=== PATIENT | female | born 1985 | race Caucasian/White ===

== ENCOUNTER 2016-11-14 20:48 | Emergency (ER) | payer OTHER ==
--- NOTE | 2016-11-14 22:57 | EDDOCDS ---
Nurse's Notes [facility] Name: Capri Lei Age: 31 yrs Sex: Female : 1985 Arrival Date: 11/14/2016 Time: 20:48 Bed PD Private MD: NO PRIMARY PHYSICIAN, . Diagnosis: Acute upper respiratory infection, unspecified Presentation: 11/14 20:52 Presenting complaint: Patient states: body ache, fever since Tuesday. Took over the rs3 counter med Tamiflu. symptoms not resolved. Adult Sepsis Screening: The patient does not have new or worsening altered mentation. Patient's respiratory rate is less than 22. Systolic blood pressure is greater than 100. Patient has a qSOFA score of 0- Negative Sepsis Screen. Suicide/Homicide risk assessment- the patient denies having any suicidal and/or homicidal ideations and does not present with any other emotional, behavioral or mental health complaints. Status: The patient is a dependent. Transition of care: patient was not received from another setting of care. 20:52 Acuity: DAVID Level 4 rs3 20:52 Method Of Arrival: Walkin/Carried/Asstd rs3 Triage Assessment: 20:54 General: Appears in no apparent distress. Pain: Denies pain. Pt Declines HIV testing. 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 none - PMHx: none; - PSHx: none; - Social history: Smoking status: Patient uses tobacco products, light tobacco smoker. No barriers to communication noted, The patient speaks fluent Divehi. - Family history: Not pertinent. - : The pt / caregiver states he / she is not on anticoagulants. Home medication list is obtained from the patient. - Exposure Risk Screening:: None identified. Screenin:53 Screening information is obtained from the patient. Fall risk: No risks identified. kmg1 Assistance ADL's: requires no assistance with activities of daily living. Abuse/DV Screen: The patient / caregiver reports he/she is: not in a situation that causes fear, pain or injury. Nutritional screening: No deficits noted. Advance Directives: There is no active DNR order. home support is adequate. Assessment: 22:53 General: Appears in no apparent distress, comfortable, Behavior is appropriate for age, kmg1 cooperative, pleasant. Respiratory: Airway is patent Respiratory effort is even, unlabored, Respiratory pattern is regular, symmetrical. Vital Signs: 20:49 BP 132 / 82; Pulse 89; Resp 18; Temp 98.9; Pulse Ox 100% ; Weight 66.22 kg; Height 5 elp ft. 3 in. (160.02 cm); Pain 5/10; 22:47 BP 123 / 87; Pulse 118; Resp 18; Temp 99.9(TE); Pulse Ox 98% on R/A; Pain 0/10; rn1 20:49 Body Mass Index 25.86 (66.22 kg, 160.02 cm) elp Vitals: 20:49 Log In Time: November 14, 2016 at 20:47. elp 22:24 Strep Screen is obtained and tested: Negative, a GATSNEG culture is ordered in [facility] ms18 and sent. ED Course: 20:49 Patient visited by Flori Rico PCA. elp 20:49 NO PRIMARY PHYSICIAN, . is Private Physician. elp 20:49 Patient moved to Waiting elp 20:50 Patient visited by Folri Rico PCA. elp 20:50 Patient moved to Pre RCE elp 20:54 Triage Initiated rs3 21:52 Patient moved to Triage 2 ms18 21:56 Cole Wylie RPA-C [facility]. ck7 21:56 Brett William DO is Attending Physician. ck7 21:56 Patient visited by Cole Wylie RPA-C. ck7 22:05 -Influenza A&B Rapid Antigen - Nose Sent. ms18 22:08 GATS (NEGATIVE STREP SCREEN) Sent. ms18 22:23 Patient moved to TR4 ms18 22:42 [facility] Payment Agreement was scanned into [employer] and attached to record. ks16 22:43 Patient moved to PD ms18 22:49 [facility] is Referral Physician. ck7 22:53 The patient / caregiver is instructed regarding the plan of care and ED course. kmg1 22:53 No IV's were initiated during this patient's visit. No procedures done that require km assistance. Order Results: Lab Order: -Influenza A&B Rapid Antigen - Nose; SPEC'M 11/14/16 22:01 Test: INFLUENZA A RAPID SCR by ICA; Value: INFLUENZA A RESULTS NEGATIVE; Status: F Test: INFLUENZA A RAPID SCR by ICA; Value: Comments:; Status: F Test: INFLUENZA B RAPID SCR by ICA; Value: INFLUENZA B RESULTS NEGATIVE; Status: F Test Note: ; The Influenza test is a direct rapid immunoassay for the qualitative detection of Influenza viral antigen. Cell culture (Viral Culture) testing should be considered to confirm NEGATIVE results and to assist in detecting other viruses that can provide similar clinical symptoms. Please contact the lab within 24 hours ([phone]) if confirmatory testing is desired. Outcome: 22:49 Discharge ordered by Provider. ck7 22:53 Discharge Assessment: Patient awake, alert and oriented x 3. No cognitive and/or kmg1 functional deficits noted. Patient verbalized understanding of disposition instructions. Patient awake and alert. patient administered narcotics - no. The following High Risk Discharge criteria are identified: None. Discharged to home ambulatory, with significant other. Condition: stable. Discharge instructions given to patient, Instructed on discharge instructions, follow up and referral plans. medication usage, Demonstrated understanding of instructions, medications, Pt was receptive of discharge instructions/ teaching. Prescriptions given X 1. No special radiology studies were completed. Property sent home with patient. 22:56 Patient left the ED. [facility] [place] Signatures: Bette Murphy, RN RN kmg1 Monet aPtelRN RN rs3 Cole Wylie, RPA-C RPA-Cck7 Flori Rico, IRVIN QC LAB TECHNICIAN Elizabeth Clay RN RN ms18 Leobardo, Sree rn1 Daxa Worthy, Reg Reg ks16 Corrections: (The following items were deleted from the chart) 20:54 20:52 Status: Patient is not a information services vice president or dependent. rs3 rs3 MTDD
--- NOTE | 2016-11-14 22:57 | EDDOCDS ---
Physician Documentation [facility] Name: Capri Lei Age: 31 yrs Sex: Female : 1985 Arrival Date: 11/14/2016 Time: 20:48 Bed PD Private MD: NO PRIMARY PHYSICIAN, . Disposition: 11/14/16 22:49 Discharged to Home/Self Care. Impression: Acute upper respiratory infection, unspecified. - Condition is Stable. - Discharge Instructions: Upper Respiratory Infection, Pediatric. - Prescriptions for Ibuprofen 600 mg Oral Tablet - take 1 tablet by ORAL route every 6 hours As needed take with food; 30 tablet. - Medication Reconciliation, Local Pharmacy Hours, Work Release Form - 2 day form. - [facility]: [facility]; When: 1 - 2 days; Reason: Recheck today's complaints, Continuance of care. - Problem is new. - Symptoms have improved. Historical: - Allergies: no known allergies; - Home Meds: 1. none - PMHx: none; - PSHx: none; - Social history: Smoking status: Patient uses tobacco products, light tobacco smoker. No barriers to communication noted, The patient speaks fluent Mohawk. - Family history: Not pertinent. - : The pt / caregiver states he / she is not on anticoagulants. Home medication list is obtained from the patient. - Exposure Risk Screening:: None identified. 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 3 in. (160.02 cm); Pain 5/10; 22:47 BP 123 / 87; Pulse 118; Resp 18; Temp 99.9(TE); Pulse Ox 98% on R/A; Pain 0/10; rn1 20:49 Body Mass Index 25.86 (66.22 kg, 160.02 cm) elp MDM: 21:56 Strep Screen, Nursing ordered. ck7 21:56 Obtain sample by nasopharyngeal swab ordered. ck7 21:57 -Influenza A&B Rapid Antigen - Nose Ordered. EDMS 22:06 GATS (NEGATIVE STREP SCREEN) Ordered. EDMS 22:27 Financial registration complete. ks16 22:42 [facility] Payment Agreement was scanned into [employer] and attached to record. ks16 22:45 -Influenza A&B Rapid Antigen - Nose Reviewed. ck7 Signatures: Dispatcher [employer] EDMS Bette Murphy, RN RN kmg1 Monet Patel RN RN rs3 Cole Wylie, RPA-C RPA-Cck7 Daxa Worthy, Reg Reg ks16 The chart was reviewed and I authenticate all verbal orders and agree with the evaluation and treatment provided.Attachments: 22:42 [facility] Payment Agreement ks16 MTDD
--- NOTE | 2016-11-16 23:56 | EDDOCDS ---
Nurse's Notes [facility] Name: Capri Lei Age: 31 yrs Sex: Female : 1985 Arrival Date: 11/14/2016 Time: 20:48 Bed PD Private MD: NO PRIMARY PHYSICIAN, . Diagnosis: Acute upper respiratory infection, unspecified Presentation: 11/14 20:52 Presenting complaint: Patient states: body ache, fever since Tuesday. Took over the rs3 counter med Tamiflu. symptoms not resolved. Adult Sepsis Screening: The patient does not have new or worsening altered mentation. Patient's respiratory rate is less than 22. Systolic blood pressure is greater than 100. Patient has a qSOFA score of 0- Negative Sepsis Screen. Suicide/Homicide risk assessment- the patient denies having any suicidal and/or homicidal ideations and does not present with any other emotional, behavioral or mental health complaints. Status: The patient is a dependent. Transition of care: patient was not received from another setting of care. 20:52 Acuity: DAVID Level 4 rs3 20:52 Method Of Arrival: Walkin/Carried/Asstd rs3 Triage Assessment: 20:54 General: Appears in no apparent distress. Pain: Denies pain. Pt Declines HIV testing. 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 none - PMHx: none; - PSHx: none; - Social history: Smoking status: Patient uses tobacco products, light tobacco smoker. No barriers to communication noted, The patient speaks fluent Czech. - Family history: Not pertinent. - : The pt / caregiver states he / she is not on anticoagulants. Home medication list is obtained from the patient. - Exposure Risk Screening:: None identified. Screenin:53 Screening information is obtained from the patient. Fall risk: No risks identified. kmg1 Assistance ADL's: requires no assistance with activities of daily living. Abuse/DV Screen: The patient / caregiver reports he/she is: not in a situation that causes fear, pain or injury. Nutritional screening: No deficits noted. Advance Directives: There is no active DNR order. home support is adequate. Assessment: 22:53 General: Appears in no apparent distress, comfortable, Behavior is appropriate for age, kmg1 cooperative, pleasant. Respiratory: Airway is patent Respiratory effort is even, unlabored, Respiratory pattern is regular, symmetrical. Vital Signs: 20:49 BP 132 / 82; Pulse 89; Resp 18; Temp 98.9; Pulse Ox 100% ; Weight 66.22 kg; Height 5 elp ft. 3 in. (160.02 cm); Pain 5/10; 22:47 BP 123 / 87; Pulse 118; Resp 18; Temp 99.9(TE); Pulse Ox 98% on R/A; Pain 0/10; rn1 20:49 Body Mass Index 25.86 (66.22 kg, 160.02 cm) elp Vitals: 20:49 Log In Time: November 14, 2016 at 20:47. elp 22:24 Strep Screen is obtained and tested: Negative, a GATSNEG culture is ordered in [facility] ms18 and sent. ED Course: 20:49 Patient visited by Flori Rico PCA. elp 20:49 NO PRIMARY PHYSICIAN, . is Private Physician. elp 20:49 Patient moved to Waiting elp 20:50 Patient visited by Floir Rico PCA. elp 20:50 Patient moved to Pre RCE elp 20:54 Triage Initiated rs3 21:52 Patient moved to Triage 2 ms18 21:56 [facility] ck7 21:56 Brett William DO is Attending Physician. ck7 21:56 Patient visited by Cole Wylie RPA-C. ck7 22:05 -Influenza A&B Rapid Antigen - Nose Sent. ms18 22:08 GATS (NEGATIVE STREP SCREEN) Sent. ms18 22:23 Patient moved to TR4 ms18 22:42 [facility] Payment Agreement was scanned into [employer] and attached to record. ks16 22:43 Patient moved to PD ms18 22:49 [facility] is Referral Physician. ck7 22:53 The patient / caregiver is instructed regarding the plan of care and ED course. kmg1 22:53 No IV's were initiated during this patient's visit. No procedures done that require km assistance. 11/15 05:07 T-Sheet-- Draft Copy was scanned into [employer] and attached to record. hs2 Order Results: Lab Order: -Influenza A&B Rapid Antigen - Nose; SPEC'M 11/14/16 22:01 Test: INFLUENZA A RAPID SCR by ICA; Value: INFLUENZA A RESULTS NEGATIVE; Status: F Test: INFLUENZA A RAPID SCR by ICA; Value: Comments:; Status: F Test: INFLUENZA B RAPID SCR by ICA; Value: INFLUENZA B RESULTS NEGATIVE; Status: F Test Note: ; The Influenza test is a direct rapid immunoassay for the qualitative detection of Influenza viral antigen. Cell culture (Viral Culture) testing should be considered to confirm NEGATIVE results and to assist in detecting other viruses that can provide similar clinical symptoms. Please contact the lab within 24 hours ([phone]) if confirmatory testing is desired. Lab Order: GATS (NEGATIVE STREP SCREEN); SPEC'M 11/14/16 22:01 Test: GATS CULTURE (NEG STREP SCR); Value: GATS RESULT NEGATIVE FOR STREP PYOGENES (GROUP A); Status: F Test: GATS CULTURE (NEG STREP SCR); Value: ORGANISM 1: STREPTOCOCCUS GROUP C; Status: F Test: GATS CULTURE (NEG STREP SCR); Value: STREPTOCOCCUS GROUP C; Status: F Test: GATS CULTURE (NEG STREP SCR); Value: QUANTITY OF GROWTH HEAVY; Status: F Outcome: 11/14 22:49 Discharge ordered by Provider. ck7 22:53 Discharge Assessment: Patient awake, alert and oriented x 3. No cognitive and/or kmg1 functional deficits noted. Patient verbalized understanding of disposition instructions. Patient awake and alert. patient administered narcotics - no. The following High Risk Discharge criteria are identified: None. Discharged to home ambulatory, with significant other. Condition: stable. Discharge instructions given to patient, Instructed on discharge instructions, follow up and referral plans. medication usage, Demonstrated understanding of instructions, medications, Pt was receptive of discharge instructions/ teaching. Prescriptions given X 1. No special radiology studies were completed. Property sent home with patient. 22:56 Patient left the ED. km Signatures: Bette Murphy RN RN kmg1 Monet Patel RN RN rs3 Cole Wylie, RPA-C RPA-Cck7 Flori Rico, IRVIN TRAFFIC SIGNAL REPAIRER Elizabeth Clay RN RN ms18 Leobardo, Sree rn1 Daxa Worthy, Reg Reg ks16 Gela Diez, Reg Reg hs2 Corrections: (The following items were deleted from the chart) 20:54 20:52 Status: Patient is not a computer service technician or dependent. rs3 rs3 Chart Complete MTDD
--- NOTE | 2016-11-16 23:56 | EDDOCDS ---
Physician Documentation [facility] Name: Capri Lei Age: 31 yrs Sex: Female : 1985 Arrival Date: 11/14/2016 Time: 20:48 Bed PD Private MD: NO PRIMARY PHYSICIAN, . Disposition: 11/14/16 22:49 Discharged to Home/Self Care. Impression: Acute upper respiratory infection, unspecified. - Condition is Stable. - Discharge Instructions: Upper Respiratory Infection, Pediatric. - Prescriptions for Ibuprofen 600 mg Oral Tablet - take 1 tablet by ORAL route every 6 hours As needed take with food; 30 tablet. - Medication Reconciliation, Local Pharmacy Hours, Work Release Form - 2 day form. - Follow up: [facility]; When: 1 - 2 days; Reason: Recheck today's complaints, Continuance of care. - Problem is new. - Symptoms have improved. Historical: - Allergies: no known allergies; - Home Meds: 1. none - PMHx: none; - PSHx: none; - Social history: Smoking status: Patient uses tobacco products, light tobacco smoker. No barriers to communication noted, The patient speaks fluent French. - Family history: Not pertinent. - : The pt / caregiver states he / she is not on anticoagulants. Home medication list is obtained from the patient. - Exposure Risk Screening:: None identified. SURGICAL RN: 11/14 20:54 LMP 11/07/2016 rs3 Vital Signs: 20:49 BP 132 / 82; Pulse 89; Resp 18; Temp 98.9; Pulse Ox 100% ; Weight 66.22 kg / 145.99 elp lbs; Height 5 ft. 3 in. (160.02 cm); Pain 5/10; 22:47 BP 123 / 87; Pulse 118; Resp 18; Temp 99.9(TE); Pulse Ox 98% on R/A; Pain 0/10; rn1 20:49 Body Mass Index 25.86 (66.22 kg, 160.02 cm) elp MDM: 21:56 Strep Screen, Nursing ordered. ck7 21:56 Obtain sample by nasopharyngeal swab ordered. ck7 21:57 -Influenza A&B Rapid Antigen - Nose Ordered. EDMS 22:06 GATS (NEGATIVE STREP SCREEN) Ordered. EDMS 22:27 Financial registration complete. ks16 22:42 [facility] Payment Agreement was scanned into [employer] and attached to record. ks16 22:45 -Influenza A&B Rapid Antigen - Nose Reviewed. ck7 11/15 05:07 T-Sheet-- Draft Copy was scanned into [employer] and attached to record. hs2 Signatures: Dispatcher [employer] EDBette Naqvi RN RN kmg1 Monet Patel RN RN rs3 Cole Wylie, RPA-C RPA-Cck7 Daxa Worthy, Reg Reg ks16 Gela Diez, Reg Reg hs2 The chart was reviewed and I authenticate all verbal orders and agree with the evaluation and treatment provided.Attachments: 11/14 22:42 [facility] Payment Agreement ks16 11/15 05:07 T-Sheet-- Draft Copy hs2 Chart Complete MTDD
--- NOTE | 2016-11-16 23:56 | EDDOCDS ---
Physician Documentation [facility] Name: Capri Lei Age: 31 yrs Sex: Female : 1985 Arrival Date: 11/14/2016 Time: 20:48 Bed PD Private MD: NO PRIMARY PHYSICIAN, . Disposition: 11/14/16 22:49 Discharged to Home/Self Care. Impression: Acute upper respiratory infection, unspecified. - Condition is Stable. - Discharge Instructions: Upper Respiratory Infection, Pediatric. - Prescriptions for Ibuprofen 600 mg Oral Tablet - take 1 tablet by ORAL route every 6 hours As needed take with food; 30 tablet. - Medication Reconciliation, Local Pharmacy Hours, Work Release Form - 2 day form. - Follow up: [facility]; When: 1 - 2 days; Reason: Recheck today's complaints, Continuance of care. - Problem is new. - Symptoms have improved. Historical: - Allergies: no known allergies; - Home Meds: 1. none - PMHx: none; - PSHx: none; - Social history: Smoking status: Patient uses tobacco products, light tobacco smoker. No barriers to communication noted, The patient speaks fluent Macedonian. - Family history: Not pertinent. - : The pt / caregiver states he / she is not on anticoagulants. Home medication list is obtained from the patient. - Exposure Risk Screening:: None identified. 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 3 in. (160.02 cm); Pain 5/10; 22:47 BP 123 / 87; Pulse 118; Resp 18; Temp 99.9(TE); Pulse Ox 98% on R/A; Pain 0/10; rn1 20:49 Body Mass Index 25.86 (66.22 kg, 160.02 cm) elp MDM: 21:56 Strep Screen, Nursing ordered. ck7 21:56 Obtain sample by nasopharyngeal swab ordered. ck7 21:57 -Influenza A&B Rapid Antigen - Nose Ordered. EDMS 22:06 GATS (NEGATIVE STREP SCREEN) Ordered. EDMS 22:27 Financial registration complete. ks16 22:42 [facility] Payment Agreement was scanned into [employer] and attached to record. ks16 22:45 -Influenza A&B Rapid Antigen - Nose Reviewed. ck7 11/15 05:07 T-Sheet-- Draft Copy was scanned into [employer] and attached to record. hs2 Signatures: Dispatcher [employer] EDBette Naqvi RN RN kmg1 Monet Patel RN RN rs3 Cole Wylie, RPA-C RPA-Cck7 Daxa Worthy, Reg Reg ks16 Gela Diez, Reg Reg hs2 The chart was reviewed and I authenticate all verbal orders and agree with the evaluation and treatment provided.Attachments: 11/14 22:42 [facility] Payment Agreement ks16 11/15 05:07 T-Sheet-- Draft Copy hs2 Chart Complete MTDD
--- NOTE | 2016-11-18 14:12 | EDDOCDS ---
Physician Documentation [facility] Name: Capri Lei Age: 31 yrs Sex: Female : 1985 Arrival Date: 11/14/2016 Time: 20:48 Bed PD Private MD: NO PRIMARY PHYSICIAN, . Disposition: 11/14/16 22:49 Discharged to Home/Self Care. Impression: Acute upper respiratory infection, unspecified. - Condition is Stable. - Discharge Instructions: Upper Respiratory Infection, Pediatric. - Prescriptions for Ibuprofen 600 mg Oral Tablet - take 1 tablet by ORAL route every 6 hours As needed take with food; 30 tablet. - Medication Reconciliation, Local Pharmacy Hours, Work Release Form - 2 day form. - Follow up: [facility]; When: 1 - 2 days; Reason: Recheck today's complaints, Continuance of care. - Problem is new. - Symptoms have improved. Historical: - Allergies: no known allergies; - Home Meds: 1. none - PMHx: none; - PSHx: none; - Social history: Smoking status: Patient uses tobacco products, light tobacco smoker. No barriers to communication noted, The patient speaks fluent Thai. - Family history: Not pertinent. - : The pt / caregiver states he / she is not on anticoagulants. Home medication list is obtained from the patient. - Exposure Risk Screening:: None identified. 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 3 in. (160.02 cm); Pain 5/10; 22:47 BP 123 / 87; Pulse 118; Resp 18; Temp 99.9(TE); Pulse Ox 98% on R/A; Pain 0/10; rn1 20:49 Body Mass Index 25.86 (66.22 kg, 160.02 cm) elp MDM: 21:56 Strep Screen, Nursing ordered. ck7 21:56 Obtain sample by nasopharyngeal swab ordered. ck7 21:57 -Influenza A&B Rapid Antigen - Nose Ordered. EDMS 22:06 GATS (NEGATIVE STREP SCREEN) Ordered. EDMS 22:27 Financial registration complete. ks16 22:42 [facility] Payment Agreement was scanned into [employer] and attached to record. ks16 22:45 -Influenza A&B Rapid Antigen - Nose Reviewed. ck7 11/15 05:07 T-Sheet-- Draft Copy was scanned into [employer] and attached to record. hs2 Signatures: Dispatcher [employer] EDBette Naqvi RN RN kmg1 Moent Patel RN RN rs3 Cole Wylie, RPA-C RPA-Cck7 Daxa Worthy, Reg Reg ks16 Gela Diez, Reg Reg hs2 The chart was reviewed and I authenticate all verbal orders and agree with the evaluation and treatment provided.Attachments: 11/14 22:42 [facility] Payment Agreement ks16 11/15 05:07 T-Sheet-- Draft Copy hs2 MTDD
--- NOTE | 2016-11-18 14:12 | EDDOCDS ---
Nurse's Notes [facility] Name: Capri Lei Age: 31 yrs Sex: Female : 1985 Arrival Date: 11/14/2016 Time: 20:48 Bed PD Private MD: NO PRIMARY PHYSICIAN, . Diagnosis: Acute upper respiratory infection, unspecified Presentation: 11/14 20:52 Presenting complaint: Patient states: body ache, fever since Tuesday. Took over the rs3 counter med Tamiflu. symptoms not resolved. Adult Sepsis Screening: The patient does not have new or worsening altered mentation. Patient's respiratory rate is less than 22. Systolic blood pressure is greater than 100. Patient has a qSOFA score of 0- Negative Sepsis Screen. Suicide/Homicide risk assessment- the patient denies having any suicidal and/or homicidal ideations and does not present with any other emotional, behavioral or mental health complaints. Status: The patient is a dependent. Transition of care: patient was not received from another setting of care. 20:52 Acuity: DAVID Level 4 rs3 20:52 Method Of Arrival: Walkin/Carried/Asstd rs3 Triage Assessment: 20:54 General: Appears in no apparent distress. Pain: Denies pain. Pt Declines HIV testing. 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 none - PMHx: none; - PSHx: none; - Social history: Smoking status: Patient uses tobacco products, light tobacco smoker. No barriers to communication noted, The patient speaks fluent Greek. - Family history: Not pertinent. - : The pt / caregiver states he / she is not on anticoagulants. Home medication list is obtained from the patient. - Exposure Risk Screening:: None identified. Screenin:53 Screening information is obtained from the patient. Fall risk: No risks identified. kmg1 Assistance ADL's: requires no assistance with activities of daily living. Abuse/DV Screen: The patient / caregiver reports he/she is: not in a situation that causes fear, pain or injury. Nutritional screening: No deficits noted. Advance Directives: There is no active DNR order. home support is adequate. Assessment: 22:53 General: Appears in no apparent distress, comfortable, Behavior is appropriate for age, kmg1 cooperative, pleasant. Respiratory: Airway is patent Respiratory effort is even, unlabored, Respiratory pattern is regular, symmetrical. Vital Signs: 20:49 BP 132 / 82; Pulse 89; Resp 18; Temp 98.9; Pulse Ox 100% ; Weight 66.22 kg; Height 5 elp ft. 3 in. (160.02 cm); Pain 5/10; 22:47 BP 123 / 87; Pulse 118; Resp 18; Temp 99.9(TE); Pulse Ox 98% on R/A; Pain 0/10; rn1 20:49 Body Mass Index 25.86 (66.22 kg, 160.02 cm) elp Vitals: 20:49 Log In Time: November 14, 2016 at 20:47. elp 22:24 Strep Screen is obtained and tested: Negative, a GATSNEG culture is ordered in [facility] ms18 and sent. ED Course: 20:49 Patient visited by Flori Rico PCA. elp 20:49 NO PRIMARY PHYSICIAN, . is Private Physician. elp 20:49 Patient moved to Waiting elp 20:50 Patient visited by Flori Rico PCA. elp 20:50 Patient moved to Pre RCE elp 20:54 Triage Initiated rs3 21:52 Patient moved to Triage 2 ms18 21:56 Cole Wyl[facility]-C [facility] ck7 21:56 Brett William DO is Attending Physician. ck7 21:56 Patient visited by Cole Wylie RPA-C. ck7 22:05 -Influenza A&B Rapid Antigen - Nose Sent. ms18 22:08 GATS (NEGATIVE STREP SCREEN) Sent. ms18 22:23 Patient moved to TR4 ms18 22:42 [facility] Payment Agreement was scanned into [employer] and attached to record. ks16 22:43 Patient moved to PD ms18 22:49 [facility] is Referral Physician. ck7 22:53 The patient / caregiver is instructed regarding the plan of care and ED course. kmg1 22:53 No IV's were initiated during this patient's visit. No procedures done that require km assistance. 11/15 05:07 T-Sheet-- Draft Copy was scanned into [employer] and attached to record. hs2 Order Results: Lab Order: -Influenza A&B Rapid Antigen - Nose; SPEC'M 11/14/16 22:01 Test: INFLUENZA A RAPID SCR by ICA; Value: INFLUENZA A RESULTS NEGATIVE; Status: F Test: INFLUENZA A RAPID SCR by ICA; Value: Comments:; Status: F Test: INFLUENZA B RAPID SCR by ICA; Value: INFLUENZA B RESULTS NEGATIVE; Status: F Test Note: ; The Influenza test is a direct rapid immunoassay for the qualitative detection of Influenza viral antigen. Cell culture (Viral Culture) testing should be considered to confirm NEGATIVE results and to assist in detecting other viruses that can provide similar clinical symptoms. Please contact the lab within 24 hours ([phone]) if confirmatory testing is desired. Lab Order: GATS (NEGATIVE STREP SCREEN); SPEC'M 11/14/16 22:01 Test: GATS CULTURE (NEG STREP SCR); Value: GATS RESULT NEGATIVE FOR STREP PYOGENES (GROUP A); Status: F Test: GATS CULTURE (NEG STREP SCR); Value: ORGANISM 1: STREPTOCOCCUS GROUP C; Status: F Test: GATS CULTURE (NEG STREP SCR); Value: STREPTOCOCCUS GROUP C; Status: F Test: GATS CULTURE (NEG STREP SCR); Value: QUANTITY OF GROWTH HEAVY; Status: F Outcome: 11/14 22:49 Discharge ordered by Provider. ck7 22:53 Discharge Assessment: Patient awake, alert and oriented x 3. No cognitive and/or g1 functional deficits noted. Patient verbalized understanding of disposition instructions. Patient awake and alert. patient administered narcotics - no. The following High Risk Discharge criteria are identified: None. Discharged to home ambulatory, with significant other. Condition: stable. Discharge instructions given to patient, Instructed on discharge instructions, follow up and referral plans. medication usage, Demonstrated understanding of instructions, medications, Pt was receptive of discharge instructions/ teaching. Prescriptions given X 1. No special radiology studies were completed. Property sent home with patient. 22:56 Patient left the ED. [facility] Addendum: 11/18/2016 14:10 Narrative: Attempted to contact pt--no answer. [facility] Signatures: Bette Murphy RN RN kmg1 Brynn Goldberg RN RN Monet Currie RN RN rs3 Cole Wylie, RPA-C RPA-Cck7 Flori Rico, IRVIN MATERIAL SPECIALIST Elizabeth Clay RN RN ms18 Sree Booth rn1 Daxa Worthy, Reg Reg ks16 Gela Diez, Reg Reg hs2 Corrections: (The following items were deleted from the chart) 11/14 20:54 20:52 Status: Patient is not a nutritional services host or dependent. rs3 rs3 MTDD
--- NOTE | 2016-11-18 14:12 | EDDOCDS ---
Physician Documentation [facility] Name: Capri Lei Age: 31 yrs Sex: Female : 1985 Arrival Date: 11/14/2016 Time: 20:48 Bed PD Private MD: NO PRIMARY PHYSICIAN, . Disposition: 11/14/16 22:49 Discharged to Home/Self Care. Impression: Acute upper respiratory infection, unspecified. - Condition is Stable. - Discharge Instructions: Upper Respiratory Infection, Pediatric. - Prescriptions for Ibuprofen 600 mg Oral Tablet - take 1 tablet by ORAL route every 6 hours As needed take with food; 30 tablet. - Medication Reconciliation, Local Pharmacy Hours, Work Release Form - 2 day form. - [facility] up: [facility]; When: 1 - 2 days; Reason: Recheck today's complaints, Continuance of care. - Problem is new. - Symptoms have improved. Historical: - Allergies: no known allergies; - Home Meds: 1. none - PMHx: none; - PSHx: none; - Social history: Smoking status: Patient uses tobacco products, light tobacco smoker. No barriers to communication noted, The patient speaks fluent Turkmen. - Family history: Not pertinent. - : The pt / caregiver states he / she is not on anticoagulants. Home medication list is obtained from the patient. - Exposure Risk Screening:: None identified. LIBRARY CLERK TALKING BOOKS: 11/14 20:54 LMP 11/07/2016 rs3 Vital Signs: 20:49 BP 132 / 82; Pulse 89; Resp 18; Temp 98.9; Pulse Ox 100% ; Weight 66.22 kg / 145.99 elp lbs; Height 5 ft. 3 in. (160.02 cm); Pain 5/10; 22:47 BP 123 / 87; Pulse 118; Resp 18; Temp 99.9(TE); Pulse Ox 98% on R/A; Pain 0/10; rn1 20:49 Body Mass Index 25.86 (66.22 kg, 160.02 cm) elp MDM: 21:56 Strep Screen, Nursing ordered. ck7 21:56 Obtain sample by nasopharyngeal swab ordered. ck7 21:57 -Influenza A&B Rapid Antigen - Nose Ordered. EDMS 22:06 GATS (NEGATIVE STREP SCREEN) Ordered. EDMS 22:27 Financial registration complete. ks16 22:42 [facility] Payment Agreement was scanned into [employer] and attached to record. ks16 22:45 -Influenza A&B Rapid Antigen - Nose Reviewed. ck7 11/15 05:07 T-Sheet-- Draft Copy was scanned into [employer] and attached to record. hs2 Signatures: Dispatcher [employer] EDBette Naqvi RN RN kmg1 Monet Patel RN RN rs3 Cole Wylie, RPA-C RPA-Cck7 Daxa Worthy, Reg Reg ks16 Gela Diez, Reg Reg hs2 The chart was reviewed and I authenticate all verbal orders and agree with the evaluation and treatment provided.Attachments: 11/14 22:42 [facility] Payment Agreement ks16 11/15 05:07 T-Sheet-- Draft Copy hs2 MTDD
--- NOTE | 2016-11-18 14:13 | EDDOCDS ---
Physician Documentation [facility] Name: Capri Lei Age: 31 yrs Sex: Female : 1985 Arrival Date: 11/14/2016 Time: 20:48 Bed PD Private MD: NO PRIMARY PHYSICIAN, . Disposition: 11/14/16 22:49 Discharged to Home/Self Care. Impression: Acute upper respiratory infection, unspecified. - Condition is Stable. - Discharge Instructions: Upper Respiratory Infection, Pediatric. - Prescriptions for Ibuprofen 600 mg Oral Tablet - take 1 tablet by ORAL route every 6 hours As needed take with food; 30 tablet. - Medication Reconciliation, Local Pharmacy Hours, Work Release Form - 2 day form. - Follow up: [facility]; When: 1 - 2 days; Reason: Recheck today's complaints, Continuance of care. - Problem is new. - Symptoms have improved. Historical: - Allergies: no known allergies; - Home Meds: 1. none - PMHx: none; - PSHx: none; - Social history: Smoking status: Patient uses tobacco products, light tobacco smoker. No barriers to communication noted, The patient speaks fluent Bulgarian. - Family history: Not pertinent. - : The pt / caregiver states he / she is not on anticoagulants. Home medication list is obtained from the patient. - Exposure Risk Screening:: None identified. 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 3 in. (160.02 cm); Pain 5/10; 22:47 BP 123 / 87; Pulse 118; Resp 18; Temp 99.9(TE); Pulse Ox 98% on R/A; Pain 0/10; rn1 20:49 Body Mass Index 25.86 (66.22 kg, 160.02 cm) elp MDM: 21:56 Strep Screen, Nursing ordered. ck7 21:56 Obtain sample by nasopharyngeal swab ordered. ck7 21:57 -Influenza A&B Rapid Antigen - Nose Ordered. EDMS 22:06 GATS (NEGATIVE STREP SCREEN) Ordered. EDMS 22:27 Financial registration complete. ks16 22:42 [facility] Payment Agreement was scanned into [employer] and attached to record. ks16 22:45 -Influenza A&B Rapid Antigen - Nose Reviewed. ck7 11/15 05:07 T-Sheet-- Draft Copy was scanned into [employer] and attached to record. hs2 Signatures: Dispatcher [employer] EDBette Naqvi RN RN kmg1 Monet Patel RN RN rs3 Cole Wylie, RPA-C RPA-Cck7 Daxa Worthy, Reg Reg ks16 Gela Diez, Reg Reg hs2 The chart was reviewed and I authenticate all verbal orders and agree with the evaluation and treatment provided.Attachments: 11/14 22:42 [facility] Payment Agreement ks16 11/15 05:07 T-Sheet-- Draft Copy hs2 Chart Complete MTDD
--- NOTE | 2016-11-18 14:13 | EDDOCDS ---
Physician Documentation [facility] Name: Capri Lei Age: 31 yrs Sex: Female : 1985 Arrival Date: 11/14/2016 Time: 20:48 Bed PD Private MD: NO PRIMARY PHYSICIAN, . Disposition: 11/14/16 22:49 Discharged to Home/Self Care. Impression: Acute upper respiratory infection, unspecified. - Condition is Stable. - Discharge Instructions: Upper Respiratory Infection, Pediatric. - Prescriptions for Ibuprofen 600 mg Oral Tablet - take 1 tablet by ORAL route every 6 hours As needed take with food; 30 tablet. - Medication Reconciliation, Local Pharmacy Hours, Work Release Form - 2 day form. - Follow up: [facility]; When: 1 - 2 days; Reason: Recheck today's complaints, Continuance of care. - Problem is new. - Symptoms have improved. Historical: - Allergies: no known allergies; - Home Meds: 1. none - PMHx: none; - PSHx: none; - Social history: Smoking status: Patient uses tobacco products, light tobacco smoker. No barriers to communication noted, The patient speaks fluent Bulgarian. - Family history: Not pertinent. - : The pt / caregiver states he / she is not on anticoagulants. Home medication list is obtained from the patient. - Exposure Risk Screening:: None identified. MANAGER PRICING: 11/14 20:54 LMP 11/07/2016 rs3 Vital Signs: 20:49 BP 132 / 82; Pulse 89; Resp 18; Temp 98.9; Pulse Ox 100% ; Weight 66.22 kg / 145.99 elp lbs; Height 5 ft. 3 in. (160.02 cm); Pain 5/10; 22:47 BP 123 / 87; Pulse 118; Resp 18; Temp 99.9(TE); Pulse Ox 98% on R/A; Pain 0/10; rn1 20:49 Body Mass Index 25.86 (66.22 kg, 160.02 cm) elp MDM: 21:56 Strep Screen, Nursing ordered. ck7 21:56 Obtain sample by nasopharyngeal swab ordered. ck7 21:57 -Influenza A&B Rapid Antigen - Nose Ordered. EDMS 22:06 GATS (NEGATIVE STREP SCREEN) Ordered. EDMS 22:27 Financial registration complete. ks16 22:42 [facility] Payment Agreement was scanned into [employer] and attached to record. ks16 22:45 -Influenza A&B Rapid Antigen - Nose Reviewed. ck7 11/15 05:07 T-Sheet-- Draft Copy was scanned into [employer] and attached to record. hs2 Signatures: Dispatcher [employer] EDBette Naqvi RN RN kmg1 Monet Patel RN RN rs3 Cole Wylie, RPA-C RPA-Cck7 Daxa Worthy, Reg Reg ks16 Gela Diez, Reg Reg hs2 The chart was reviewed and I authenticate all verbal orders and agree with the evaluation and treatment provided.Attachments: 11/14 22:42 [facility] Payment Agreement ks16 11/15 05:07 T-Sheet-- Draft Copy hs2 Chart Complete MTDD
--- NOTE | 2016-11-18 14:13 | EDDOCDS ---
Nurse's Notes [facility] Name: Capri Lei Age: 31 yrs Sex: Female : 1985 Arrival Date: 11/14/2016 Time: 20:48 Bed PD Private MD: NO PRIMARY PHYSICIAN, . Diagnosis: Acute upper respiratory infection, unspecified Presentation: 11/14 20:52 Presenting complaint: Patient states: body ache, fever since Tuesday. Took over the rs3 counter med Tamiflu. symptoms not resolved. Adult Sepsis Screening: The patient does not have new or worsening altered mentation. Patient's respiratory rate is less than 22. Systolic blood pressure is greater than 100. Patient has a qSOFA score of 0- Negative Sepsis Screen. Suicide/Homicide risk assessment- the patient denies having any suicidal and/or homicidal ideations and does not present with any other emotional, behavioral or mental health complaints. Status: The patient is a dependent. Transition of care: patient was not received from another setting of care. 20:52 Acuity: DAVID Level 4 rs3 20:52 Method Of Arrival: Walkin/Carried/Asstd rs3 Triage Assessment: 20:54 General: Appears in no apparent distress. Pain: Denies pain. Pt Declines HIV testing. 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 none - PMHx: none; - PSHx: none; - Social history: Smoking status: Patient uses tobacco products, light tobacco smoker. No barriers to communication noted, The patient speaks fluent Romanian. - Family history: Not pertinent. - : The pt / caregiver states he / she is not on anticoagulants. Home medication list is obtained from the patient. - Exposure Risk Screening:: None identified. Screenin:53 Screening information is obtained from the patient. Fall risk: No risks identified. kmg1 Assistance ADL's: requires no assistance with activities of daily living. Abuse/DV Screen: The patient / caregiver reports he/she is: not in a situation that causes fear, pain or injury. Nutritional screening: No deficits noted. Advance Directives: There is no active DNR order. home support is adequate. Assessment: 22:53 General: Appears in no apparent distress, comfortable, Behavior is appropriate for age, kmg1 cooperative, pleasant. Respiratory: Airway is patent Respiratory effort is even, unlabored, Respiratory pattern is regular, symmetrical. Vital Signs: 20:49 BP 132 / 82; Pulse 89; Resp 18; Temp 98.9; Pulse Ox 100% ; Weight 66.22 kg; Height 5 elp ft. 3 in. (160.02 cm); Pain 5/10; 22:47 BP 123 / 87; Pulse 118; Resp 18; Temp 99.9(TE); Pulse Ox 98% on R/A; Pain 0/10; rn1 20:49 Body Mass Index 25.86 (66.22 kg, 160.02 cm) elp Vitals: 20:49 Log In Time: November 14, 2016 at 20:47. elp 22:24 Strep Screen is obtained and tested: Negative, a GATSNEG culture is ordered in [facility] ms18 and sent. ED Course: 20:49 Patient visited by Flori Rico PCA. elp 20:49 NO PRIMARY PHYSICIAN, . is Private Physician. elp 20:49 Patient moved to Waiting elp 20:50 Patient visited by Flori Rico PCA. elp 20:50 Patient moved to Pre RCE elp 20:54 Triage Initiated rs3 21:52 Patient moved to Triage 2 ms18 21:56 [facility] ck[facility] 21:56 Brett William DO is Attending Physician. ck7 21:56 Patient visited by Cole Wylie RPA-C. ck7 22:05 -Influenza A&B Rapid Antigen - Nose Sent. ms18 22:08 GATS (NEGATIVE STREP SCREEN) Sent. ms18 22:23 Patient moved to TR4 ms18 22:42 [facility] Payment Agreement was scanned into [employer] and attached to record. ks16 22:43 Patient moved to PD ms18 22:49 [facility] is Referral Physician. ck7 22:53 The patient / caregiver is instructed regarding the plan of care and ED course. kmg1 22:53 No IV's were initiated during this patient's visit. No procedures done that require km assistance. 11/15 05:07 T-Sheet-- Draft Copy was scanned into [employer] and attached to record. hs2 Order Results: Lab Order: -Influenza A&B Rapid Antigen - Nose; SPEC'M 11/14/16 22:01 Test: INFLUENZA A RAPID SCR by ICA; Value: INFLUENZA A RESULTS NEGATIVE; Status: F Test: INFLUENZA A RAPID SCR by ICA; Value: Comments:; Status: F Test: INFLUENZA B RAPID SCR by ICA; Value: INFLUENZA B RESULTS NEGATIVE; Status: F Test Note: ; The Influenza test is a direct rapid immunoassay for the qualitative detection of Influenza viral antigen. Cell culture (Viral Culture) testing should be considered to confirm NEGATIVE results and to assist in detecting other viruses that can provide similar clinical symptoms. Please contact the lab within 24 hours ([phone]) if confirmatory testing is desired. Lab Order: GATS (NEGATIVE STREP SCREEN); SPEC'M 11/14/16 22:01 Test: GATS CULTURE (NEG STREP SCR); Value: GATS RESULT NEGATIVE FOR STREP PYOGENES (GROUP A); Status: F Test: GATS CULTURE (NEG STREP SCR); Value: ORGANISM 1: STREPTOCOCCUS GROUP C; Status: F Test: GATS CULTURE (NEG STREP SCR); Value: STREPTOCOCCUS GROUP C; Status: F Test: GATS CULTURE (NEG STREP SCR); Value: QUANTITY OF GROWTH HEAVY; Status: F Outcome: 11/14 22:49 Discharge ordered by Provider. ck7 22:53 Discharge Assessment: Patient awake, alert and oriented x 3. No cognitive and/or g1 functional deficits noted. Patient verbalized understanding of disposition instructions. Patient awake and alert. patient administered narcotics - no. The following High Risk Discharge criteria are identified: None. Discharged to home ambulatory, with significant other. Condition: stable. Discharge instructions given to patient, Instructed on discharge instructions, follow up and referral plans. medication usage, Demonstrated understanding of instructions, medications, Pt was receptive of discharge instructions/ teaching. Prescriptions given X 1. No special radiology studies were completed. Property sent home with patient. 22:56 Patient left the ED. [facility] Addendum: 11/18/2016 14:10 Narrative: Attempted to contact pt--no answer. [facility] Signatures: Bette Murphy RN RN kmg1 Brynn Goldberg RN RN Monet Currie RN RN rs3 Cole Wylie, RPA-C RPA-Cck7 Flori Rico, IRVIN FILTER CHANGING TECHNICIAN Elizabeth Clay RN RN ms18 Sree Booth rn1 Daxa Worthy, Reg Reg ks16 Gela Diez, Reg Reg hs2 Corrections: (The following items were deleted from the chart) 11/14 20:54 20:52 Status: Patient is not a rn women services or dependent. rs3 rs3 Chart Complete MTDD
--- NOTE | 2016-11-20 17:16 | EDDOCDS ---
Physician Documentation [facility] Name: Capri Lei Age: 31 yrs Sex: Female : 1985 Arrival Date: 11/14/2016 Time: 20:48 Bed PD Private MD: NO PRIMARY PHYSICIAN, . Disposition: 11/14/16 22:49 Discharged to Home/Self Care. Impression: Acute upper respiratory infection, unspecified. - Condition is Stable. - Discharge Instructions: Upper Respiratory Infection, Pediatric. - Prescriptions for Ibuprofen 600 mg Oral Tablet - take 1 tablet by ORAL route every 6 hours As needed take with food; 30 tablet. - Medication Reconciliation, Local Pharmacy Hours, Work Release Form - 2 day form. - Follow up: [facility]; When: 1 - 2 days; Reason: Recheck today's complaints, Continuance of care. - Problem is new. - Symptoms have improved. Historical: - Allergies: no known allergies; - Home Meds: 1. none - PMHx: none; - PSHx: none; - Social history: Smoking status: Patient uses tobacco products, light tobacco smoker. No barriers to communication noted, The patient speaks fluent Croatian. - Family history: Not pertinent. - : The pt / caregiver states he / she is not on anticoagulants. Home medication list is obtained from the patient. - Exposure Risk Screening:: None identified. 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 3 in. (160.02 cm); Pain 5/10; 22:47 BP 123 / 87; Pulse 118; Resp 18; Temp 99.9(TE); Pulse Ox 98% on R/A; Pain 0/10; rn1 20:49 Body Mass Index 25.86 (66.22 kg, 160.02 cm) elp MDM: 21:56 Strep Screen, Nursing ordered. ck7 21:56 Obtain sample by nasopharyngeal swab ordered. ck7 21:57 -Influenza A&B Rapid Antigen - Nose Ordered. EDMS 22:06 GATS (NEGATIVE STREP SCREEN) Ordered. EDMS 22:27 Financial registration complete. ks16 22:42 [facility] Payment Agreement was scanned into [employer] and attached to record. ks16 22:45 -Influenza A&B Rapid Antigen - Nose Reviewed. ck7 11/15 05:07 T-Sheet-- Draft Copy was scanned into [employer] and attached to record. hs2 Signatures: Dispatcher [employer] EDBette Naqvi RN RN kmg1 Monet Patel RN RN rs3 Cole Wylie, RPA-C RPA-Cck7 Daxa Worthy, Reg Reg ks16 Gela Diez, Reg Reg hs2 The chart was reviewed and I authenticate all verbal orders and agree with the evaluation and treatment provided.Attachments: 11/14 22:42 [facility] Payment Agreement ks16 11/15 05:07 T-Sheet-- Draft Copy hs2 MTDD
--- NOTE | 2016-11-20 17:16 | EDDOCDS ---
Physician Documentation [facility] Name: Capri Lei Age: 31 yrs Sex: Female : 1985 Arrival Date: 11/14/2016 Time: 20:48 Bed PD Private MD: NO PRIMARY PHYSICIAN, . Disposition: 11/14/16 22:49 Discharged to Home/Self Care. Impression: Acute upper respiratory infection, unspecified. - Condition is Stable. - Discharge Instructions: Upper Respiratory Infection, Pediatric. - Prescriptions for Ibuprofen 600 mg Oral Tablet - take 1 tablet by ORAL route every 6 hours As needed take with food; 30 tablet. - Medication Reconciliation, Local Pharmacy Hours, Work Release Form - 2 day form. - [facility] up: [facility]; When: 1 - 2 days; Reason: Recheck today's complaints, Continuance of care. - Problem is new. - Symptoms have improved. Historical: - Allergies: no known allergies; - Home Meds: 1. none - PMHx: none; - PSHx: none; - Social history: Smoking status: Patient uses tobacco products, light tobacco smoker. No barriers to communication noted, The patient speaks fluent Chinese. - Family history: Not pertinent. - : The pt / caregiver states he / she is not on anticoagulants. Home medication list is obtained from the patient. - Exposure Risk Screening:: None identified. 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 3 in. (160.02 cm); Pain 5/10; 22:47 BP 123 / 87; Pulse 118; Resp 18; Temp 99.9(TE); Pulse Ox 98% on R/A; Pain 0/10; rn1 20:49 Body Mass Index 25.86 (66.22 kg, 160.02 cm) elp MDM: 21:56 Strep Screen, Nursing ordered. ck7 21:56 Obtain sample by nasopharyngeal swab ordered. ck7 21:57 -Influenza A&B Rapid Antigen - Nose Ordered. EDMS 22:06 GATS (NEGATIVE STREP SCREEN) Ordered. EDMS 22:27 Financial registration complete. ks16 22:42 [facility] Payment Agreement was scanned into [employer] and attached to record. ks16 22:45 -Influenza A&B Rapid Antigen - Nose Reviewed. ck7 11/15 05:07 T-Sheet-- Draft Copy was scanned into [employer] and attached to record. hs2 Signatures: Dispatcher [employer] EDBette Naqvi RN RN kmg1 Monet Patel RN RN rs3 Cole Wylie, RPA-C RPA-Cck7 Daxa Worthy, Reg Reg ks16 Gela Diez, Reg Reg hs2 The chart was reviewed and I authenticate all verbal orders and agree with the evaluation and treatment provided.Attachments: 11/14 22:42 [facility] Payment Agreement ks16 11/15 05:07 T-Sheet-- Draft Copy hs2 MTDD
--- NOTE | 2016-11-20 17:17 | EDDOCDS ---
Nurse's Notes [facility] Name: Capri Lei Age: 31 yrs Sex: Female : 1985 Arrival Date: 11/14/2016 Time: 20:48 Bed PD Private MD: NO PRIMARY PHYSICIAN, . Diagnosis: Acute upper respiratory infection, unspecified Presentation: 11/14 20:52 Presenting complaint: Patient states: body ache, fever since Tuesday. Took over the rs3 counter med Tamiflu. symptoms not resolved. Adult Sepsis Screening: The patient does not have new or worsening altered mentation. Patient's respiratory rate is less than 22. Systolic blood pressure is greater than 100. Patient has a qSOFA score of 0- Negative Sepsis Screen. Suicide/Homicide risk assessment- the patient denies having any suicidal and/or homicidal ideations and does not present with any other emotional, behavioral or mental health complaints. Status: The patient is a dependent. Transition of care: patient was not received from another setting of care. 20:52 Acuity: DAVID Level 4 rs3 20:52 Method Of Arrival: Walkin/Carried/Asstd rs3 Triage Assessment: 20:54 General: Appears in no apparent distress. Pain: Denies pain. Pt Declines HIV testing. 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 none - PMHx: none; - PSHx: none; - Social history: Smoking status: Patient uses tobacco products, light tobacco smoker. No barriers to communication noted, The patient speaks fluent Turkmen. - Family history: Not pertinent. - : The pt / caregiver states he / she is not on anticoagulants. Home medication list is obtained from the patient. - Exposure Risk Screening:: None identified. Screenin:53 Screening information is obtained from the patient. Fall risk: No risks identified. kmg1 Assistance ADL's: requires no assistance with activities of daily living. Abuse/DV Screen: The patient / caregiver reports he/she is: not in a situation that causes fear, pain or injury. Nutritional screening: No deficits noted. Advance Directives: There is no active DNR order. home support is adequate. Assessment: 22:53 General: Appears in no apparent distress, comfortable, Behavior is appropriate for age, kmg1 cooperative, pleasant. Respiratory: Airway is patent Respiratory effort is even, unlabored, Respiratory pattern is regular, symmetrical. Vital Signs: 20:49 BP 132 / 82; Pulse 89; Resp 18; Temp 98.9; Pulse Ox 100% ; Weight 66.22 kg; Height 5 elp ft. 3 in. (160.02 cm); Pain 5/10; 22:47 BP 123 / 87; Pulse 118; Resp 18; Temp 99.9(TE); Pulse Ox 98% on R/A; Pain 0/10; rn1 20:49 Body Mass Index 25.86 (66.22 kg, 160.02 cm) elp Vitals: 20:49 Log In Time: November 14, 2016 at 20:47. elp 22:24 Strep Screen is obtained and tested: Negative, a GATSNEG culture is ordered in [facility] ms18 and sent. ED Course: 20:49 Patient visited by Flori Rico PCA. elp 20:49 NO PRIMARY PHYSICIAN, . is Private Physician. elp 20:49 Patient moved to Waiting elp 20:50 Patient visited by Flori Rico PCA. elp 20:50 Patient moved to Pre RCE elp 20:54 Triage Initiated rs3 21:52 Patient moved to Triage 2 ms18 21:56 [facility] ck7 21:56 Brett William DO is Attending Physician. ck7 21:56 Patient visited by Cole Wylie RPA-C. ck7 22:05 -Influenza A&B Rapid Antigen - Nose Sent. ms18 22:08 GATS (NEGATIVE STREP SCREEN) Sent. ms18 22:23 Patient moved to TR4 ms18 22:42 [facility] Payment Agreement was scanned into [employer] and attached to record. ks16 22:43 Patient moved to PD ms18 22:49 [facility] is Referral Physician. ck7 22:53 The patient / caregiver is instructed regarding the plan of care and ED course. kmg1 22:53 No IV's were initiated during this patient's visit. No procedures done that require km assistance. 11/15 05:07 T-Sheet-- Draft Copy was scanned into [employer] and attached to record. hs2 Order Results: Lab Order: -Influenza A&B Rapid Antigen - Nose; SPEC'M 11/14/16 22:01 Test: INFLUENZA A RAPID SCR by ICA; Value: INFLUENZA A RESULTS NEGATIVE; Status: F Test: INFLUENZA A RAPID SCR by ICA; Value: Comments:; Status: F Test: INFLUENZA B RAPID SCR by ICA; Value: INFLUENZA B RESULTS NEGATIVE; Status: F Test Note: ; The Influenza test is a direct rapid immunoassay for the qualitative detection of Influenza viral antigen. Cell culture (Viral Culture) testing should be considered to confirm NEGATIVE results and to assist in detecting other viruses that can provide similar clinical symptoms. Please contact the lab within 24 hours ([phone]) if confirmatory testing is desired. Lab Order: GATS (NEGATIVE STREP SCREEN); SPEC'M 11/14/16 22:01 Test: GATS CULTURE (NEG STREP SCR); Value: GATS RESULT NEGATIVE FOR STREP PYOGENES (GROUP A); Status: F Test: GATS CULTURE (NEG STREP SCR); Value: ORGANISM 1: STREPTOCOCCUS GROUP C; Status: F Test: GATS CULTURE (NEG STREP SCR); Value: STREPTOCOCCUS GROUP C; Status: F Test: GATS CULTURE (NEG STREP SCR); Value: QUANTITY OF GROWTH HEAVY; Status: F Outcome: 11/14 22:49 Discharge ordered by Provider. ck7 22:53 Discharge Assessment: Patient awake, alert and oriented x 3. No cognitive and/or kmg1 functional deficits noted. Patient verbalized understanding of disposition instructions. Patient awake and alert. patient administered narcotics - no. The following High Risk Discharge criteria are identified: None. Discharged to home ambulatory, with significant other. Condition: stable. Discharge instructions given to patient, Instructed on discharge instructions, follow up and referral plans. medication usage, Demonstrated understanding of instructions, medications, Pt was receptive of discharge instructions/ teaching. Prescriptions given X 1. No special radiology studies were completed. Property sent home with patient. 22:56 Patient left the ED. kmg1 Addendum: 11/18/2016 14:10 Narrative: Attempted to contact pt--no answer. [facility] 11/20/2016 17:13 Narrative: GATS reviewed by Jose Manuel PHIPPS on 11-18-16 advised to call pt. if still kpj feeling ill rx for Amoxicillin 500 mg TID x 10 days prescribed, if better F/U PCP. Attempted to contact, no answer unable to leave message. Signatures: Bette Murphy, RN RN kmg1 Shena Vu RN RN Brynn Carroll, RN RN Monet CurrieRN RN rs3 Cole Wylie, RPA-C RPA-Cck7 Flori Rico, CONFERENCE COORDINATOR CONFERENCE COORDINATOR bryanp Elizabeth Balderas RN RN ms18 Leobardo, Sree rn1 Daxa Worthy, Reg Reg ks16 Gela Diez, Reg Reg hs2 Corrections: (The following items were deleted from the chart) 11/14 20:54 20:52 Status: Patient is not a electrical sign servicer or dependent. rs3 rs3 MTDD
--- NOTE | 2016-11-20 17:19 | EDDOCDS ---
Nurse's Notes [facility] Name: Capri Lei Age: 31 yrs Sex: Female : 1985 Arrival Date: 11/14/2016 Time: 20:48 Bed PD Private MD: NO PRIMARY PHYSICIAN, . Diagnosis: Acute upper respiratory infection, unspecified Presentation: 11/14 20:52 Presenting complaint: Patient states: body ache, fever since Tuesday. Took over the rs3 counter med Tamiflu. symptoms not resolved. Adult Sepsis Screening: The patient does not have new or worsening altered mentation. Patient's respiratory rate is less than 22. Systolic blood pressure is greater than 100. Patient has a qSOFA score of 0- Negative Sepsis Screen. Suicide/Homicide risk assessment- the patient denies having any suicidal and/or homicidal ideations and does not present with any other emotional, behavioral or mental health complaints. Status: The patient is a dependent. Transition of care: patient was not received from another setting of care. 20:52 Acuity: DAVID Level 4 rs3 20:52 Method Of Arrival: Walkin/Carried/Asstd rs3 Triage Assessment: 20:54 General: Appears in no apparent distress. Pain: Denies pain. Pt Declines HIV testing. 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 none - PMHx: none; - PSHx: none; - Social history: Smoking status: Patient uses tobacco products, light tobacco smoker. No barriers to communication noted, The patient speaks fluent Slovak. - Family history: Not pertinent. - : The pt / caregiver states he / she is not on anticoagulants. Home medication list is obtained from the patient. - Exposure Risk Screening:: None identified. Screenin:53 Screening information is obtained from the patient. Fall risk: No risks identified. kmg1 Assistance ADL's: requires no assistance with activities of daily living. Abuse/DV Screen: The patient / caregiver reports he/she is: not in a situation that causes fear, pain or injury. Nutritional screening: No deficits noted. Advance Directives: There is no active DNR order. home support is adequate. Assessment: 22:53 General: Appears in no apparent distress, comfortable, Behavior is appropriate for age, kmg1 cooperative, pleasant. Respiratory: Airway is patent Respiratory effort is even, unlabored, Respiratory pattern is regular, symmetrical. Vital Signs: 20:49 BP 132 / 82; Pulse 89; Resp 18; Temp 98.9; Pulse Ox 100% ; Weight 66.22 kg; Height 5 elp ft. 3 in. (160.02 cm); Pain 5/10; 22:47 BP 123 / 87; Pulse 118; Resp 18; Temp 99.9(TE); Pulse Ox 98% on R/A; Pain 0/10; rn1 20:49 Body Mass Index 25.86 (66.22 kg, 160.02 cm) elp Vitals: 20:49 Log In Time: November 14, 2016 at 20:47. elp 22:24 Strep Screen is obtained and tested: Negative, a GATSNEG culture is ordered in [facility] ms18 and sent. ED Course: 20:49 Patient visited by Flori Rico PCA. elp 20:49 NO PRIMARY PHYSICIAN, . is Private Physician. elp 20:49 Patient moved to Waiting elp 20:50 Patient visited by Flori Rico PCA. elp 20:50 Patient moved to Pre RCE elp 20:54 Triage Initiated rs3 21:52 Patient moved to Triage 2 ms18 21:56 [facility] ck7 21:56 Brett William DO is Attending Physician. ck7 21:56 Patient visited by Cole Wylie RPA-C. ck7 22:05 -Influenza A&B Rapid Antigen - Nose Sent. ms18 22:08 GATS (NEGATIVE STREP SCREEN) Sent. ms18 22:23 Patient moved to TR4 ms18 22:42 [facility] Payment Agreement was scanned into [employer] and attached to record. ks16 22:43 Patient moved to PD ms18 22:49 [facility] is Referral Physician. ck7 22:53 The patient / caregiver is instructed regarding the plan of care and ED course. kmg1 22:53 No IV's were initiated during this patient's visit. No procedures done that require km assistance. 11/15 05:07 T-Sheet-- Draft Copy was scanned into [employer] and attached to record. hs2 Order Results: Lab Order: -Influenza A&B Rapid Antigen - Nose; SPEC'M 11/14/16 22:01 Test: INFLUENZA A RAPID SCR by ICA; Value: INFLUENZA A RESULTS NEGATIVE; Status: F Test: INFLUENZA A RAPID SCR by ICA; Value: Comments:; Status: F Test: INFLUENZA B RAPID SCR by ICA; Value: INFLUENZA B RESULTS NEGATIVE; Status: F Test Note: ; The Influenza test is a direct rapid immunoassay for the qualitative detection of Influenza viral antigen. Cell culture (Viral Culture) testing should be considered to confirm NEGATIVE results and to assist in detecting other viruses that can provide similar clinical symptoms. Please contact the lab within 24 hours ([phone]) if confirmatory testing is desired. Lab Order: GATS (NEGATIVE STREP SCREEN); SPEC'M 11/14/16 22:01 Test: GATS CULTURE (NEG STREP SCR); Value: GATS RESULT NEGATIVE FOR STREP PYOGENES (GROUP A); Status: F Test: GATS CULTURE (NEG STREP SCR); Value: ORGANISM 1: STREPTOCOCCUS GROUP C; Status: F Test: GATS CULTURE (NEG STREP SCR); Value: STREPTOCOCCUS GROUP C; Status: F Test: GATS CULTURE (NEG STREP SCR); Value: QUANTITY OF GROWTH HEAVY; Status: F Outcome: 11/14 22:49 Discharge ordered by Provider. ck7 22:53 Discharge Assessment: Patient awake, alert and oriented x 3. No cognitive and/or kmg1 functional deficits noted. Patient verbalized understanding of disposition instructions. Patient awake and alert. patient administered narcotics - no. The following High Risk Discharge criteria are identified: None. Discharged to home ambulatory, with significant other. Condition: stable. Discharge instructions given to patient, Instructed on discharge instructions, follow up and referral plans. medication usage, Demonstrated understanding of instructions, medications, Pt was receptive of discharge instructions/ teaching. Prescriptions given X 1. No special radiology studies were completed. Property sent home with patient. 22:56 Patient left the ED. kmg1 Addendum: 11/18/2016 14:10 Narrative: Attempted to contact pt--no answer. [facility] 11/20/2016 17:13 Narrative: GATS reviewed by Jose Manuel PHIPPS on 11-18-16 advised to call pt. if still kpj feeling ill rx for Amoxicillin 500 mg TID x 10 days prescribed, if better F/U PCP. Attempted to contact, no answer unable to leave message. Signatures: Bette Murphy, RN RN kmg1 Shena Vu RN RN Brynn Carroll, RN RN Monet CurrieRN RN rs3 Cole Wylie, RPA-C RPA-Cck7 Flori Rico, CONSUMER AFFAIRS SPECIALIST CONSUMER AFFAIRS SPECIALIST bryanp Elizabeth Balderas RN RN ms18 Leobardo, Sree rn1 Daxa Worthy, Reg Reg ks16 Gela Diez, Reg Reg hs2 Corrections: (The following items were deleted from the chart) 11/14 20:54 20:52 Status: Patient is not a customer service leader or dependent. rs3 rs3 Chart Complete MTDD
--- NOTE | 2016-11-20 17:19 | EDDOCDS ---
Physician Documentation [facility] Name: Capri Lei Age: 31 yrs Sex: Female : 1985 Arrival Date: 11/14/2016 Time: 20:48 Bed PD Private MD: NO PRIMARY PHYSICIAN, . Disposition: 11/14/16 22:49 Discharged to Home/Self Care. Impression: Acute upper respiratory infection, unspecified. - Condition is Stable. - Discharge Instructions: Upper Respiratory Infection, Pediatric. - Prescriptions for Ibuprofen 600 mg Oral Tablet - take 1 tablet by ORAL route every 6 hours As needed take with food; 30 tablet. - Medication Reconciliation, Local Pharmacy Hours, Work Release Form - 2 day form. - Follow up: [facility]; When: 1 - 2 days; Reason: Recheck today's complaints, Continuance of care. - Problem is new. - Symptoms have improved. Historical: - Allergies: no known allergies; - Home Meds: 1. none - PMHx: none; - PSHx: none; - Social history: Smoking status: Patient uses tobacco products, light tobacco smoker. No barriers to communication noted, The patient speaks fluent Malay. - Family history: Not pertinent. - : The pt / caregiver states he / she is not on anticoagulants. Home medication list is obtained from the patient. - Exposure Risk Screening:: None identified. 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 3 in. (160.02 cm); Pain 5/10; 22:47 BP 123 / 87; Pulse 118; Resp 18; Temp 99.9(TE); Pulse Ox 98% on R/A; Pain 0/10; rn1 20:49 Body Mass Index 25.86 (66.22 kg, 160.02 cm) elp MDM: 21:56 Strep Screen, Nursing ordered. ck7 21:56 Obtain sample by nasopharyngeal swab ordered. ck7 21:57 -Influenza A&B Rapid Antigen - Nose Ordered. EDMS 22:06 GATS (NEGATIVE STREP SCREEN) Ordered. EDMS 22:27 Financial registration complete. ks16 22:42 [facility] Payment Agreement was scanned into [employer] and attached to record. ks16 22:45 -Influenza A&B Rapid Antigen - Nose Reviewed. ck7 11/15 05:07 T-Sheet-- Draft Copy was scanned into [employer] and attached to record. hs2 Signatures: Dispatcher [employer] EDBette Naqvi RN RN kmg1 Monet Patel RN RN rs3 Cole Wylie, RPA-C RPA-Cck7 Daxa Worthy, Reg Reg ks16 Gela Diez, Reg Reg hs2 The chart was reviewed and I authenticate all verbal orders and agree with the evaluation and treatment provided.Attachments: 11/14 22:42 [facility] Payment Agreement ks16 11/15 05:07 T-Sheet-- Draft Copy hs2 Chart Complete MTDD
--- NOTE | 2016-11-20 17:19 | EDDOCDS ---
Physician Documentation [facility] Name: Capri Lei Age: 31 yrs Sex: Female : 1985 Arrival Date: 11/14/2016 Time: 20:48 Bed PD Private MD: NO PRIMARY PHYSICIAN, . Disposition: 11/14/16 22:49 Discharged to Home/Self Care. Impression: Acute upper respiratory infection, unspecified. - Condition is Stable. - Discharge Instructions: Upper Respiratory Infection, Pediatric. - Prescriptions for Ibuprofen 600 mg Oral Tablet - take 1 tablet by ORAL route every 6 hours As needed take with food; 30 tablet. - Medication Reconciliation, Local Pharmacy Hours, Work Release Form - 2 day form. - Follow up: [facility]; When: 1 - 2 days; Reason: Recheck today's complaints, Continuance of care. - Problem is new. - Symptoms have improved. Historical: - Allergies: no known allergies; - Home Meds: 1. none - PMHx: none; - PSHx: none; - Social history: Smoking status: Patient uses tobacco products, light tobacco smoker. No barriers to communication noted, The patient speaks fluent Bulgarian. - Family history: Not pertinent. - : The pt / caregiver states he / she is not on anticoagulants. Home medication list is obtained from the patient. - Exposure Risk Screening:: None identified. 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 3 in. (160.02 cm); Pain 5/10; 22:47 BP 123 / 87; Pulse 118; Resp 18; Temp 99.9(TE); Pulse Ox 98% on R/A; Pain 0/10; rn1 20:49 Body Mass Index 25.86 (66.22 kg, 160.02 cm) elp MDM: 21:56 Strep Screen, Nursing ordered. ck7 21:56 Obtain sample by nasopharyngeal swab ordered. ck7 21:57 -Influenza A&B Rapid Antigen - Nose Ordered. EDMS 22:06 GATS (NEGATIVE STREP SCREEN) Ordered. EDMS 22:27 Financial registration complete. ks16 22:42 [facility]END[facility] Payment Agreement was scanned into [employer] and attached to record. ks16 22:45 -Influenza A&B Rapid Antigen - Nose Reviewed. ck7 11/15 05:07 T-Sheet-- Draft Copy was scanned into [employer] and attached to record. hs2 Signatures: Dispatcher [employer] EDBette Naqvi RN RN kmg1 Monet Patel RN RN rs3 Cole Wylie, RPA-C RPA-Cck7 Daxa Worthy, Reg Reg ks16 Gela Diez, Reg Reg hs2 The chart was reviewed and I authenticate all verbal orders and agree with the evaluation and treatment provided.Attachments: 11/14 22:42 [facility] Payment Agreement ks16 11/15 05:07 T-Sheet-- Draft Copy hs2 Chart Complete MTDD
== END 2016-11-14 22:56 | disposition home or self-care (01) ==
LOC: M ED 20:48
DX: J06.9 Acute upper respiratory infection, unspecified (principal); Z72.0 Tobacco use